=== PATIENT | male | born 1955 | race Caucasian/White ===

== ENCOUNTER 2017-02-06 08:18 | Emergency (ER) | payer OTHER ==
[2017-02-06 08:44] VITALS: BP 141/88
--- NOTE | 2017-02-06 09:30 | RAD ---
Indication: Left lateral chest pain after chest injury. 3 views of the left RIBS and AP view the chest demonstrates suggestion of a fracture of the left anterior 10th rib. There may also be a nondisplaced fracture of the anterior left ninth rib. No pneumothorax is noted. No mediastinal shift is noted. Heart is of normal size and configuration. IMPRESSION: There is suggestion of a nondisplaced fracture of the anterior left ninth and 10th ribs. No pneumothorax is noted.
--- NOTE | 2017-02-06 10:57 | UC ---
Lynn Combs Alok, scribed for Ryan Vallecillo MD on 02/06/17 at 0849 . Minor Trauma HPI - HPI Summary HPI Summary: 61M presents to [facility] with left sided rib pain radiating to the back since a slip and fall 3 days ago. Pt landed on his left sided and reported pain only hours after impact, worsening today. Pt states his pain is worsened by cough, bending forward, and supine position. Pt has been taking Tylenol and using Arctica cream to alleviate pain. Pt notes constipation for the last 3 days and states his last BM was harder than usual. Pt notes chronic productive cough with white sputum due to tobacco use. Pt denies dyspnea, rash, SOB, abd pain, or blood in stool. - History of Current Complaint Stated Complaint: POSSIBLE BROKEN RIB Time Seen by Provider: 02/06/17 08:33 Hx Obtained From: Patient Onset/Duration: Lasting Days Severity Initially: Moderate Severity Currently: Moderate Pain Intensity: 4 Pain Scale Used: 0-10 Numeric Mechanism Of Injury: Fall From A Standing Position Aggravating Factor(s): Coughing Alleviating Factor(s): OTC Meds - Tylenol - Allergies/Home Medications Allergies/Adverse Reactions: Allergies Allergy/AdvReac Type Severity Reaction Status Date / Time Buckwheat Allergy Unknown Unknown Verified 02/09/16 08:12 Reaction Details PMH/Surg Hx/FS Hx/Imm Hx - Surgical History Surgical History: Yes Surgery Procedure, Year, and Place: vasectomy, bilateral cataract removal - Family History Known Family History: Negative: Cardiac Disease, Hypertension, Diabetes Family History: FHx of melanoma - mother; FHx of prostate CA - father - Social History Occupation: Employed Full-time Lives: With Family Alcohol Use: Occasionally Substance Use Type: None Smoking Status (MU): Heavy Every Day Tobacco Smoker Type: Cigarettes Amount Used/How Often: 1 PACK PER WEEK Have You Smoked in the Last Year: Yes When Did the Patient Quit Smoking/Using Tobacco: STARTED SMOKING IN HIGH SCHOOL Household Exposure Type: Cigarettes Review of Systems Respiratory: Cough Gastrointestinal: Other - constipation Musculoskeletal: Other: - left sided rib pain, back pain All Other Systems Reviewed And Are Negative: Yes Physical Exam Triage Information Reviewed: Yes Appearance: Well-Appearing, No Pain Distress Vital Signs: Initial Vital Signs Temp 99 F 02/06/17 08:29 Pulse 78 02/06/17 08:29 Resp 18 06/13/17 08:29 BP 141/88 02/06/17 08:29 Pulse Ox 97 02/06/17 08:29 Vital Signs Reviewed: Yes Eyes: Positive: Other: - EOMI, CHARBEL ENT Exam: Normal Neck: Positive: Supple, Nontender Respiratory: Positive: Lungs clear, No respiratory distress Cardiovascular: Positive: RRR Abdomen Description: Positive: Nontender, Soft Bowel Sounds: Positive: Present Musculoskeletal: Positive: Other: - Tender left lateral lower ribs to palpation with good air movement bilaterally. Neurological Exam: Normal Neurological: Positive: Other: - alert & oriented x3. Sensory/Motor intact Psychological: Positive: Other: - affect/mood appropriate Skin: Positive: Other - warm, dry, color reflects adequate perfusion Diagnostics - Radiology Ribs w/CXR Xray Interpretation: Positive (See Comments) - IMPRESSION: There is suggestion of a nondisplaced fracture of the anterior left ninth and 10th ribs. No pneumothorax is noted. Radiology Interpretation Completed By: Radiologist Minor Trauma Course/Dx - Course Course Of Treatment: Pt medications reviewed this visit. PATIENT NON TENDER IN ABDOMEN. DISCUSSED TREATMENT OF RIBS FXRS. HE WILL USE OTC CONSTIPATION CARE. F/U WITH PMD; WILL GET RECHECKED IF WORSE. - Differential Dx/Diagnosis Provider Diagnoses: LEFT 9TH AND 10TH RIB FRACTURES. CONSTIPATION. Discharge - Discharge Plan Condition: Stable Disposition: HOME Patient Education Materials: How to Use an Incentive Spirometer (ED), Constipation (ED), Rib Fracture (ED) Referrals: Stephenie Toro MD [Primary Care Provider] - Additional Instructions: FOLLOW UP WITH YOUR DOCTOR. GO TO THE EMERGENCY DEPARTMENT FOR ANY WORSENING OF YOUR CONDITION OR QUESTIONS OR CONCERNS. The documentation as recorded by the Lynn rodgers Alok accurately reflects the service I personally performed and the decisions made by me, Ryan Vallecillo MD.
== END 2017-02-06 10:19 | disposition home or self-care (01) ==
LOC: UCEAST 08:18
DX: S22.42XA Multiple fractures of ribs, left side, initial encounter for closed fracture (principal); K59.00 Constipation, unspecified; F17.210 Nicotine dependence, cigarettes, uncomplicated; W01.0XXA Fall on same level from slipping, tripping and stumbling without subsequent striking against object, initial encounter; Y92.9 Unspecified place or not applicable
CPT/HCPCS: 99201; G0463

== ENCOUNTER 2017-12-30 09:29 | Emergency (ER) | payer OTHER ==
--- NOTE | 2017-12-30 11:12 | RAD ---
INDICATION: Fall 2 weeks ago, headache since. COMPARISON: There are no prior studies available for comparison. TECHNIQUE: Contiguous axial sections of the brain were obtained from the skull base to the vertex without contrast. FINDINGS: The ventricles, cisterns and sulci are within normal limits. No significant focal abnormality or mass effect is seen. There is no evidence for hemorrhage. No fracture is seen. There is mild mucosal thickening within the ethmoid, sphenoid and frontal sinuses. The visualized portion of the axillary sinuses appear clear. The mastoid air cells appear clear. IMPRESSION: 1. NO EVIDENCE FOR ACUTE INTRACRANIAL ABNORMALITY. 2. FINDINGS SUGGESTIVE OF MILD CHRONIC SINUSITIS.
--- NOTE | 2017-12-30 11:15 | RAD ---
INDICATION: Right hip injury. COMPARISON: There are no prior studies available for comparison. TECHNIQUE: An AP view of the pelvis and frontal and lateral views of the right hip were obtained. FINDINGS: There is a bony configuration predisposing to CAM type femoral acetabular impingement. The bones are otherwise in normal alignment. No fracture is seen There is mild bilateral osteoarthritic change in the hips. IMPRESSION: NO EVIDENCE FOR FRACTURE, IF THE PATIENT'S SYMPTOMS PERSIST RECOMMEND FOLLOW-UP IMAGING.
[2017-12-30] MEDS ORDERED: Ibuprofen TAB* 600 MG PO ONE (11:35)
--- NOTE | 2017-12-30 11:51 | RAD ---
INDICATION: Right testicular pain. COMPARISON: There are no prior studies available for comparison. TECHNIQUE: Multiple real-time images of the testicles were obtained including color Doppler images and Doppler tracings. FINDINGS: The testicles are normal in size, shape and echogenicity. The right testicle measured 4.3 x 2.2 x 3.0 cm and the left testicle measured 3.6 x 2.1 x 4.2 cm. No intratesticular mass is seen. There is symmetric vascular flow within both testicles. There are prominent bilateral extratesticular cysts likely representing epididymal cysts measuring 1.0 x 1.3 x 1.1 cm on the right side and 9.7 x 5.9 x 5.0 cm on the left side. No hydrocele is seen. IMPRESSION: 1. NO EVIDENCE FOR ACUTE FINDING. 2. BILATERAL EXTRATESTICULAR CYSTS MOST CONSISTENT WITH A EPIDIDYMAL CYSTS, LARGE ON THE LEFT SIDE.
--- NOTE | 2017-12-30 12:05 | RAD ---
INDICATION: Right groin pain after trauma. COMPARISON: Correlation is made with a prior CT urogram from April 17, 2013 and a prior x-ray study of the right hip from December 30, 2017. TECHNIQUE: Contiguous axial sections were obtained through the pelvis without intravenous or oral contrast. Images were reconstructed in the coronal and sagittal planes. FINDINGS: The bones are normal alignment. No acute fracture is seen. There is bilateral spondylolysis at the L5 level. The vertebra are in normal alignment. 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 There is mild to moderate bilateral osteoarthritic change in the hips. There is a cystic lesion within the medial right iliac bone with a sclerotic margin measuring 1 cm in size which is unchanged from the prior CT urogram and consistent with a benign process. There are bilateral vasectomy clips present. Again note is made of a large left scrotal cyst. The visualized portion of the small bowel and colon appear nondistended. No hernia is seen. There is moderate sigmoid diverticulosis without evidence for diverticulitis. No significant enlarged pelvic or inguinal lymph nodes are seen. No free intraperitoneal air or fluid is seen. IMPRESSION: 1. NO EVIDENCE FOR FRACTURE OR HERNIA. 2. BILATERAL SPONDYLOLYSIS AT THE L5 LEVEL.
[2017-12-30 13:30] VITALS: BP 126/73
--- NOTE | 2017-12-30 13:39 | ED ---
Complex/Multi-Sys Presentation - HPI Summary HPI Summary: patient here with right groin pain times the past week. He's noticed a progressive worsening of pain here which she describes as intermittent stiffness and aching. This seems to be worse after he's been sitting for period of time and stands up - it gets better once he is up and moving around a bit. He's here today as he reports the pain started radiating into his right testicular area. Denies any numbness tingling or weakness in his leg and no change in bowel or bladder habits. He is urinating well although he does admit to a large yet stable left testicular cyst and chronic microhematuria without known cause. He is followed by Dr. Collins for these conditions. He denies any change in testicular swelling as well as flank pain, dysuria, urinary frequency , urinary urgency. He is moving his bowels well without difficulty. After describing the symptoms and learning more of his back Souri, he reports he fell in the bathtub 2 weeks ago. He had soap on his feet that wasn't completely rinsed off when he slipped and fell. He does not believe he struck his head but he is not sure - denies loss of consciousness. He has had some headaches since then however denies change in vision, nausea, new neck pain/stiffness, memory issues. His further reports he fell again yesterday as he tripped over an object on the floor. Although this was a mechanical fall, both he and his feel he should have been able to maneuver this better. reports patient's mood/personality/demeanor has been changing over the past year and that his friends and family notice it as well. His PCP has ordered brain imaging for January 10 in an effort to better identify a possible pathology linked to his symptoms. Patient denies history of head injuries but he is exposed to chemicals at his job. notes patient did have a very low vitamin D level (8 ) recently and has been taking supplements since. 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 - - Allergies/Home Medications Allergies/Adverse Reactions: Allergies Allergy/AdvReac Type Severity Reaction Status Date / Time buckwheat Allergy Anaphylatic Verified 12/30/17 09:43 Shock Home Medications: Home Medications Cholecalciferol TAB* [Vitamin D TAB*] 1,000 units PO DAILY 12/30/17 [History Confirmed 12/30/17] PMH/Surg Hx/FS Hx/Imm Hx Previously Healthy: Yes Endocrine/Hematology History: Reports: Hx Thyroid Disease - HYPOTHYROID Denies: Hx Anticoagulant Therapy, Hx Blood Disorders, Hx Diabetes Cardiovascular History: Reports: Hx Hypercholesterolemia Denies: Hx Aneurysm, Hx Hypertension, Hx Myocardial Infarction, Hx Pacemaker/ ICD Respiratory History: Denies: Hx Asthma, Hx Chronic Obstructive Pulmonary Disease (COPD), Hx Sleep Apnea GI History: Denies: Hx Gastroesophageal Reflux Disease, Hx Irritable Bowel History: Denies: Hx Kidney Stones Musculoskeletal History: Reports: Other Musculoskeletal History - chronic neck issues Sensory History: Reports: Hx Cataracts, Hx Contacts or Glasses - GLASSES Denies: Hx Hearing Aid Opthamlomology History: Reports: Hx Cataracts, Hx Contacts or Glasses - GLASSES Neurological History: Denies: Hx CVA, Hx Headaches, Hx Migraine, Hx Nerve Disease, Hx Peripheral Neuropathy, Hx Seizures, Hx Spinal Cord Injury Psychiatric History: Denies: Hx Anxiety, Hx Depression - Surgical History Surgery Procedure, Year, and Place: vasectomy, bilateral cataract removal Hx Anesthesia Reactions: No Infectious Disease History: No Infectious Disease History: Denies: Hx Clostridium Difficile, Hx Hepatitis, Hx Human Immunodeficiency Virus (HIV), Hx of Known/Suspected MRSA, Hx Shingles, Hx Tuberculosis, Hx Known/ Suspected VRE, Hx Known/Suspected VRSA, History Other Infectious Disease, Traveled Outside the [place] in Last 30 Days - Family History Known Family History: Negative: Cardiac Disease, Hypertension, Diabetes Family History: FHx of melanoma - mother; FHx of prostate CA - father - Social History Alcohol Use: Occasionally Substance Use Type: Reports: None Smoking Status (MU): Heavy Every Day Tobacco Smoker Type: Cigarettes Amount Used/How Often: 1 PACK PER WEEK Have You Smoked in the Last Year: Yes Review of Systems Constitutional: Negative Negative: Fever, Chills, Fatigue Positive: Photophobia - chronic. Negative: Blurred Vision, Diplopia, Drainage, Erythema ENT: Negative Cardiovascular: Negative Respiratory: Negative Gastrointestinal: Negative Positive: see HPI Positive: Arthralgia, Myalgia. Negative: Decreased ROM, Edema Skin: Negative Positive: Headache. Negative: Weakness, Paresthesia, Numbness, Syncope, Slurred Speech Psychological: Other - mood changes in history of present illness All Other Systems Reviewed And Are Negative: Yes Physical Exam Triage Information Reviewed: Yes Vital Signs On Initial Exam: Initial Vitals Temp Pulse Resp BP Pulse Ox 97.2 F 87 16 151/93 97 12/30/17 09:32 12/30/17 09:32 12/30/17 09:32 12/30/17 09:32 12/30/17 09:32 Vital Signs Reviewed: Yes Appearance: Positive: Well-Appearing, No Pain Distress, Well-Nourished Skin: Positive: Warm, Skin Color Reflects Adequate Perfusion, Dry - No erythema , no ecchymosis over affected area of right hip groin inner thigh area Head/Face: Positive: Normal Head/Face Inspection - Nontender palpation and no gross deformity, no step-off, no cooper sign, no raccoon eyes Eyes: Positive: Normal, EOMI, CHARBEL - No acute photophobia, Conjunctiva Clear ENT: Positive: Normal ENT inspection, Hearing grossly normal, Pharynx normal, TMs normal - No hemotympanum Dental: Negative: Dental Fracture @ Neck: Positive: Supple, Nontender Respiratory/Lung Sounds: Positive: Clear to Auscultation, Breath Sounds Present Cardiovascular: Positive: Normal, RRR, Pulses are Symmetrical in both Upper and Lower Extremities. Negative: Leg Edema Left, Leg Edema Right Abdomen Description: Positive: Nontender, No Organomegaly, Soft. Negative: CVA Tenderness (R), CVA Tenderness (L), Distended, Guarding, Hernia @, Pulsatile Mass Bowel Sounds: Positive: Present Male Genital Exam: Positive: Scrotum Tenderness (L) - Significant edema with additional weight, Testicular Tenderness (R) - Smooth without palpable masses - has posterior mild tenderness of vascular/epididymal structures, Testicular Tenderness (L) - Smooth without palpable masses. Negative: No Hernia, Erythema , High Riding Prostate, Inguinal Tenderness, Lesions, Urethral Discharge, Other - No lymphadenopathy in the inguinal region bilaterally Musculoskeletal: Positive: Strength/ROM Intact - Patient denies pain with single leg standing on affected leg as well as full range of motion standing using affected leg; negative impingement test. Negative: Pain @ - Entire hip structure greater trochanter and proximal femur are nontender to palpation Neurological: Positive: Sensory/Motor Intact, Alert, Oriented to Person Place, Time, CN Intact II-III, Finger to Nose - as below, Facial Symmetry, Other - I don't have a baseline evaluation for this patient but he seems to be responding more slowly/deliberately based on his baseline per ; minimal but noticable coordiation issues with finger to nose testing Psychiatric: Positive: Other - Pleasant, calm, defers to to answer some questions which she reports is out of character for him Diagnostics - Vital Signs Vital Signs Temp Pulse Resp BP Pulse Ox 12/30/17 13:18 69 126/73 97 12/30/17 13:00 73 96 12/30/17 12:48 79 108/75 96 12/30/17 12:18 64 130/83 97 12/30/17 12:00 65 97 12/30/17 11:00 65 98 12/30/17 10:48 69 138/88 98 12/30/17 10:18 73 134/88 96 12/30/17 10:05 78 97 12/30/17 09:51 81 149/96 97 12/30/17 09:48 81 149/93 97 12/30/17 09:32 97.2 F 87 16 151/93 97 - Laboratory Lab Statement: Any lab studies that have been ordered have been reviewed, and results considered in the medical decision making process. Complex Multi-Symp Course/Dx Course Of Treatment: X-ray right hip and pelvis reveals CAM impingement. Further evaluated with CT given patient's symptoms which further confirms condition without additional pathology such as fracture, dislocation, lesion, etc. Patient was provided with ibuprofen and advised conservative care as well as close follow-up with PCP in the event that he needs an orthopedic referral. He's been ambulating with symptoms without difficulty so do not feel that nonweightbearing precautions are needed at this time. Furthermore given the fact that he has had headaches since his falls, a brain CT was ordered to assess for intracranial hemorrhage or swelling. He is neurologically intact today other than slower/deliberate responses which seem out of character. His CT is negative for acute findings however conversation with to follow-up with PCP for further imaging based on her concerns over his changes in the past year. She agrees to contact PCP to discuss evaluation today and voice her concerns about evaluation moving forward. D/t pain in hip and coordination issues, will remove from work until cleared to return by PCP. Reviewed danger signs and symptoms with patient and are when to return the emergency Department. They agree with plan. - Diagnoses Provider Diagnoses: Femoroacetabular impingement of right hip, Fall, Decreased coordination Discharge - Sign-Out/Discharge Documenting (check all that apply): Discharge/Admit/Transfer - Discharge Plan Condition: Stable Disposition: HOME Patient Education Materials: Fall Prevention (ED), Hip Pain (ED) Forms: *Work Release Referrals: Stephenie Toro MD [Primary Care Provider] - Additional Instructions: You are here today with right groin pain after falling 2 weeks ago. Your symptoms and imaging here today correlate with a condition called Femoral acetabular impingement. The treatment at this time will be Aleve 500 mg every 12 hours with food as needed for pain. You may also try heat or ice to the area. It is encouraged that you don't stay in one position for too long as this seems to create stiffness for you. It is also important that you follow up with her primary care physician for further investigation of this condition in the event that it does not improve with recommendations made here today. Call tomorrow to schedule an appointment this week for follow-up as you may need further referral to an center medical specialist. *If in the meantime you develop leg numbness, tingling, or weakness, return to the ED. In addition to your groin pain, you also commented that you've been having headaches since your fall. A brain CT was performed today and does not indicate any bleeding within the skull. Your however has indicated a progression of change in personality as well as reduced energy, symptoms of being more withdrawn and difficulty with coordination, all of which are unlike your baseline. This has been discussed with your PCP who ordered imaging on January 10. Contact your PCP tomorrow to let them know that you had a brain CT without contrast here today that is showing no acute findings as you may benefit from more detailed imaging through your PCP's office such as an MRI. You may also benefit from a neurology consult given your symptoms which your and others that know you well report have been progressively worsening over the past year. Your PCP can arrange this referral for you based on your scan findings as well as any additional testing he may perform in his office ( ie. dementia screening, etc). *If you develop severe headache, change in vision, vomiting, numbness, tingling , weakness, facial drooping, slurred speech, syncope or seizure, return to the ED - Billing Disposition and Condition Condition: STABLE Disposition: HOME
== END 2017-12-30 13:53 | disposition home or self-care (01) ==
LOC: ED 09:29
DX: M25.851 Other specified joint disorders, right hip (principal); R10.31 Right lower quadrant pain; F17.210 Nicotine dependence, cigarettes, uncomplicated; R51 Headache; H53.149 Visual discomfort, unspecified
CPT/HCPCS: 70450; 72192; 76870; 99283; A9270-GY

== ENCOUNTER 2019-01-26 00:55 | Inpatient (IN) | payer MEDICARE, OTHER ==
--- NOTE | 2019-01-26 02:03 | ED ---
Psychiatric Complaint - HPI Summary HPI Summary: This patient is a 63 year old M brought to ED via with a chief complaint of suicide attempt at 0010 this morning. Patient was found by police in his vehicle attempting suicide by asphyxiation from truck exhaust fed into his house. He was in the car for about 30 minutes. Patient was found by his . 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 Patient reports having long guns in his house. The patient rates the pain 2/10 in severity. Symptoms aggravated by nothing. Symptoms alleviated by nothing. Patient denies previous SI or suicide attempt, fever. - History Of Current Complaint Chief Complaint: EDSuicidal Time Seen by Provider: 01/26/19 01:47 Hx Obtained From: Patient, EMS Onset/Duration: Lasting Hours - SI attempt at 0100 this morning Aggravating Factor(s): Nothing Alleviating Factor(s): Nothing Associated Signs And Symptoms: Positive: Negative Has Suicidal: Reports: Has Prior Attempt(s) Recent Stressor(s): Dx with PSP - Allergies/Home Medications Allergies/Adverse Reactions: Allergies Allergy/AdvReac Type Severity Reaction Status Date / Time buckwheat Allergy Anaphylatic Verified 01/26/19 04:08 Shock PMH/Surg Hx/FS Hx/Imm Hx Endocrine/Hematology History: Reports: Hx Thyroid Disease - HYPOTHYROID Denies: Hx Anticoagulant Therapy, Hx Blood Disorders, Hx Diabetes Cardiovascular History: Reports: Hx Hypercholesterolemia Denies: Hx Aneurysm, Hx Hypertension, Hx Myocardial Infarction, Hx Pacemaker/ ICD Respiratory History: Denies: Hx Asthma, Hx Chronic Obstructive Pulmonary Disease (COPD), Hx Sleep Apnea GI History: Denies: Hx Gastroesophageal Reflux Disease, Hx Irritable Bowel History: Denies: Hx Kidney Stones, Hx Renal Disease Musculoskeletal History: Reports: Other Musculoskeletal History - chronic neck issues Sensory History: Reports: Hx Cataracts, Hx Contacts or Glasses - GLASSES Denies: Hx Hearing Aid Opthamlomology History: Reports: Hx Cataracts, Hx Contacts or Glasses - GLASSES Neurological History: Denies: Hx CVA, Hx Headaches, Hx Migraine, Hx Nerve Disease, Hx Peripheral Neuropathy, Hx Seizures, Hx Spinal Cord Injury Psychiatric History: Denies: Hx Anxiety, Hx Depression, Hx Panic Disorder - Surgical History Surgery Procedure, Year, and Place: vasectomy, bilateral cataract removal Hx Anesthesia Reactions: No Infectious Disease History: No Infectious Disease History: Denies: Hx Clostridium Difficile, Hx Hepatitis, Hx Human Immunodeficiency Virus (HIV), Hx of Known/Suspected MRSA, Hx Shingles, Hx Tuberculosis, Hx Known/ Suspected VRE, Hx Known/Suspected VRSA, History Other Infectious Disease, Traveled Outside the [place] in Last 30 Days - Family History Known Family History: Negative: Cardiac Disease, Hypertension, Diabetes Family History: FHx of melanoma - mother; FHx of prostate CA - father - Social History Alcohol Use: Occasionally Hx Substance Use: No Substance Use Type: Reports: None Hx Tobacco Use: No Smoking Status (MU): Heavy Every Day Tobacco Smoker Type: Cigarettes Amount Used/How Often: 1 PACK PER WEEK Have You Smoked in the Last Year: Yes Review of Systems Negative: Fever Psychological: Other - Suicide attempt All Other Systems Reviewed And Are Negative: Yes Physical Exam - Summary Physical Exam Summary: Appearance:Well-appearing, Well-nourished, lying in bed comfortable Skin:Warm, dry, no obvious rash Eyes:sclera anicteric, no conjunctival pallor ENT:mucous membranes moist Neck:deferred Respiratory:No signs of respiratory distress Cardiovascular:Appears well perfused, pulses are nml Abdomen:deferred Musculoskeletal:Moving all 4 extremities without obvious discomfort Neurological:Awakeand alert, mentation is normal, speech is fluent and appropriate Psychiatric:flat affect, does not appear anxious or depressed Triage Information Reviewed: Yes Vital Signs On Initial Exam: Initial Vitals Temp Pulse Resp BP Pulse Ox 98.5 F 95 16 135/82 96 01/26/19 01:14 01/26/19 01:14 01/26/19 01:14 01/26/19 01:14 01/26/19 01:14 Vital Signs Reviewed: Yes Diagnostics - Vital Signs Vital Signs Temp Pulse Resp BP Pulse Ox 01/26/19 01:14 98.5 F 95 16 135/82 96 - Laboratory Result Diagrams: 01/26/19 03:10 01/26/19 03:10 Lab Statement: Any lab studies that have been ordered have been reviewed, and results considered in the medical decision making process. Course/Dx - Course Course Of Treatment: This patient is a 63 year old M brought to ED via with a chief complaint of suicide attempt at 0010 this morning. Blood work obtained. Patient is medically cleared for MHU at 0409. The patient will be admitted to [facility] by Dr. Myers for depressive disorder and suicide attempt. - Differential Dx/Clinical Impression Provider Diagnosis: Depressive disorder Discharge - Sign-Out/Discharge Documenting (check all that apply): Patient Departure - Admit Patient Received Moderate/Deep Sedation with Procedure: No - Discharge Plan Condition: Fair Disposition: PSYCHIATRIC FACILITY-[facility] - Billing Disposition and Condition Condition: FAIR Disposition: Psychiatric Facility [facility] - Attestation Statements Document Initiated by Scribe: Yes Documenting Scribe: Phong Kerns Provider For Whom Scribe is Documenting (Include Credential): Roberto Carlos Vega MD Scribe Attestation: Phong Combs, scribed for Roberto Carlos Vega MD on 01/27/19 at 0312. Scribe Documentation Reviewed: Yes Provider Attestation: The documentation as recorded by the Phong rodgers accurately reflects the service I personally performed and the decisions made by me, Roberto Carlos Vega MD Status of Scribe Document: Viewed
[2019-01-26 03:20] LABS: ABS Basophils 0.1 10^3/ul (0-0.2); ABS Eosinophils 0.3 10^3/ul (0-0.6); ABS Lymphocytes 2.5 10^3/ul (1.0-4.8); ABS Monocytes 1.1 10^3/ul (0-0.8); ABS Neutrophils 6.5 10^3/ul (1.5-7.7); Eosinophil % 2.7 %; Hematocrit 47 % (42-52); Hemoglobin 15.5 g/dL (14.0-18.0); Lymphocyte % 23.8 %; Mean Corpuscular HGB Conc 33 g/dL (31-36); Mean Corpuscular Hemoglobin 29 pg (27-31); Mean Corpuscular Volume 89 fL (80-94); Mean Platelet Volume 7.9 fL (7.4-10.4); Nucleated Red Blood Cells % 0.1; Platelet Count 200 10^3/uL (150-450); Red Blood Count 5.32 10^6 /uL (4.18-5.48); Red Cell Distribution Width 15 % (10.5-15); White Blood Count 10.5 10^3/uL (3.5-10.8)
[2019-01-26 03:34] LABS: ALT 17 U/L (7-52); Albumin 3.8 g/dL (3.2-5.2); Albumin/Globulin Ratio 1.3 (1-3); Alkaline Phosphatase 87 U/L (34-104); BUN/Creatinine Ratio 18.1 (8-20); Blood Urea Nitrogen 15 mg/dL (6-24); CO2 Carbon Dioxide 23 mmol/L (22-32); Calcium 9.1 mg/dL (8.6-10.3); Chloride 107 mmol/L (101-111); EGFR African American 112.5 (>60); Globulin 2.9 g/dL (2-4); Glucose 102 mg/dL (70-100); Sodium 139 mmol/L (135-145); Total Protein 6.7 g/dL (6.4-8.9)
[2019-01-26 03:54] LABS: AST 20 U/L (13-39); Anion Gap 9 mmol/L (2-11)
[2019-01-26 03:55] LABS: Acetaminophen < 15 mcg/mL; Alcohol < 10 mg/dL (<10); Salicylate < 2.50 mg/dL (<30)
[2019-01-26 04:11] LABS: TSH (Thyroid Stimulating Horm) 1.62 mcIU/mL (0.34-5.60)
--- NOTE | 2019-01-26 07:26 | ED ---
Progress - Progress Note Progress Note: This patient is signed out from Dr. Vega at 0700 awaiting disposition per mental health staff. - Consult/PCP Time Called: 04:40 Course/Dx - Course Course Of Treatment: This patient is a 63 year old M brought in after a suicide attempt at 0100. This patient was signed out from Dr. Vega at 0700. At 0720 mental health chair post machine operator informed me that this patient will be admitted with a diagnosis of unspecified depressive disorder per Dr. Sanchez. - Diagnoses Provider Diagnoses: Depressive disorder Discharge - Sign-Out/Discharge Documenting (check all that apply): Patient Departure - admit - Discharge Plan Condition: Fair Disposition: PSYCHIATRIC FACILITY-[facility] - Attestation Statements Document Initiated by Scribe: Yes Documenting Scribe: Blossom Martin Provider For Whom Scribe is Documenting (Include Credential): Rome Guzmán MD Scribe Attestation: Blossom Combs, scribed for Rome Guzmán MD on 01/26/19 at 2374. Status of Scribe Document: Ready
[2019-01-26] MEDS ORDERED: Al Hydrox/Mg Hydrox/Simet LIQ* 30 ML UDC PO PRN (09:53)
[2019-01-26] MEDS ORDERED: Acetaminophen TAB* 325 MG PO PRN (09:53)
[2019-01-26] MEDS ORDERED: Cholecalciferol TAB* 1000 UNITS PO SCH (10:00)
[2019-01-26] MEDS ORDERED: Atorvastatin* 20 MG TAB PO SCH (10:00)
[2019-01-26] MEDS: Levothyroxine TAB* 112 MCG TAB PO SCH (10:30)
[2019-01-26] MEDS: Sertraline* 25 MG TAB PO SCH (10:30)
[2019-01-26] MEDS: Vitamin THERAPEUTIC TAB PO SCH (10:31)
[2019-01-26] MEDS ORDERED: Nicotine Patch Removal NOTE PATCH OFF PRN (15:19)
[2019-01-26] MEDS: Nicotine* 2MG (FRUIT FLAVOR) GUM PO PRN ×2 (16:33→20:03)
--- NOTE | 2019-01-26 18:28 | HP ---
HISTORY AND PHYSICAL: DATE OF ADMISSION: 01/26/19 IDENTIFYING DATA: Mr. Maynard is a 63-year-old, physically disabled male with no prior history of psychiatric hospitalization or treatments, who was brought into the emergency room by police and ambulance after a failed suicide attempt. CHIEF COMPLAINT: "I seriously tried to take myself out." HISTORY OF PRESENT ILLNESS: Mr. 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 The patient reports that he has been going through some relationship problems with his who is sidetracking him from the job as well as her life. He reports that he did not have any sexual encounter with his for more than 2 years because of her complaints of her own problems and he is not happy and he has suspicion that she might be trying to sidetrack and get rid of him eventually. This gives him the idea that he should end his life to relieve others. While talking about mental health issues , he denies any typical signs or symptoms of major depression, hypomania, or rahel. He denies any psychotic symptoms. He reports that his neurologist prescribed him some antidepressants, but I cannot find it whatever he was prescribed. PAST PSYCHIATRIC HISTORY: Unremarkable as he was never seen by a psychiatrist or received any treatment. PAST MEDICAL HISTORY: Remarkable for a diagnosis of non-Parkinson's progressive supranuclear palsy for which he sees double and has difficulty ambulating. Reportedly, he fell a few days ago because of unsteadiness. Otherwise, he denies any acute or chronic physical health issues. He sees Dr. Oneill and sometimes goes to [place] to see superspecialist for his neurological conditions. ALLERGIES: No known drug allergies. FAMILY PSYCHIATRIC HISTORY: Unremarkable. PERSONAL AND SOCIAL HISTORY: Mr. Maynard is currently disabled. He has little more than high school education. 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 He then joined his 's business, but now that has become an issue for him. PHYSICAL EXAMINATION GENERAL: Mr. Maynard is a healthy-appearing 63-year-old male, who is appropriately dressed and fairly groomed with fair personal hygiene. VITAL SIGNS: His vitals show a blood pressure of 135/82, pulse 95, respirations 16, temperature 98.5, and pulse ox 96% on room air. HEENT: His eyes show anicteric sclerae. Conjunctivae within normal limits. Ears: Clean eardrums and ear canals. Eardrums intact bilaterally. There is some difficulty hearing through his left ear he reports, but no formal exam was done. NECK: Little stiff, but movable. Midline trachea. No adenopathy or thyromegaly. LUNGS: Equal air entry bilaterally. No respiratory wheezes or crackles. CARDIOVASCULAR: S1 and S2 only. No gallops, murmurs, or rubs appreciated. Rate and rhythm are within normal limits. ABDOMEN: Soft, nontender. No evidence of enlarged organs. Bowel sounds positive in all quadrants. MUSCULOSKELETAL: Little stiff, maybe because of apprehension, but there are pulses positive in all extremities. NEUROLOGICAL: Alert, awake, and oriented to time, place, and person. Does not blink much. Otherwise, no sensory deficits. Cranial nerves II through XII grossly intact. LABORATORY DATA: Labs show a WBC count of 10.5, hemoglobin 15.5, hematocrit 47 , platelet count 200. Chem profile shows a sodium level of 139, potassium 4, chloride 107, carbon dioxide 23, BUN 15, creatinine 0.82. MENTAL STATUS EXAMINATION: The patient appears to be of his stated age 63, who is appropriately dressed, fairly groomed with fair personal hygiene. He has some gait difficulties, walks with a cane. Makes good eye contact, but does not have much of blinking. Looks like he is staring intensely, but that probably could be because of his neurological conditions. His speech is normal in all spheres. Intelligence appears to be average as evidenced by his vocabulary and fund of knowledge. Thought processes are logical and goal directed. Thought content has no evidence of delusions or obsessions. Currently denies any suicidal ideation, but was admitted because of attempting to asphyxiate. Denies any homicidal ideations. Memory functions appear to be intact in all spheres. Insight and judgment poor. SUMMARY: This 63-year-old disabled male with no prior history of psychiatric illnesses or treatments was admitted in the context of a failed suicide attempt by trying to asphyxiate self with carbon monoxide. DIAGNOSTIC IMPRESSION: Mental health diagnosis: Unspecified mood disorder, rule out adjustment disorder, rule out major depressive disorder. Physical health diagnosis: Non-Parkinson's progressive supranuclear palsy. TREATMENT RECOMMENDATIONS: For now, Mr. Maynard will be hospitalized on behavioral science unit for his safety and diagnostic clarification. His code status will remain full. Supportive milieu, individual, and group therapy will be initiated and he will be encouraged to attend those. I will continue all his outpatient medications at this time and defer the psychopharmacological treatment if needed to his assigned psychiatrist on the unit. [id number]/CPS #: [id number] EDE
[2019-01-26] MEDS: Cholecalciferol TAB* 1000 UNITS PO SCH (20:00)
[2019-01-26] MEDS: Atorvastatin* 20 MG TAB PO SCH (20:01)
[2019-01-26] MEDS: clonazePAM TAB(*) 1 MG PO SCH (20:01)
[2019-01-27] MEDS: Nicotine PATCH 21 MG/24 HR* PATCH TRANSDERM PRN (07:53)
[2019-01-27] MEDS: Levothyroxine TAB* 112 MCG TAB PO SCH (07:53)
[2019-01-27] MEDS: Sertraline* 25 MG TAB PO SCH (07:53)
[2019-01-27] MEDS: Vitamin THERAPEUTIC TAB PO SCH (08:27)
--- NOTE | 2019-01-27 09:54 | PN ---
Subjective - Subjective Date of Service: 01/27/19 Service Type: 31424 Hosp care 35 min high complexity Subjective: Nursing Report: Patient was visible on unit, no chemical restraints or PRNs. Slept overnight without incident. Attending group activities. CC: "I want to Patient was seen and evaluated today in the common room. The patient reported feeling fed up with his . He reported not having sex for 2 years and although he doesnt think his is having an affair. He reported that he is considering a divorce because he doesnt think his considers him anymore. He reports extremely low energy. The patient reports attending and participating in day groups. Per nursing no behavioral issues or overnight events reported. Patient reported that he is tolerating medications without side effects. Objective - General Observations Appearance: Neat Appears Stated Age: Yes Stature: WNL Posture: Slumped Eye Contact: Avoidant Behavior/Activity: Slowed - Interaction Observations Attitude Towards Examiner: Cooperative Stated Mood: Dysphoric Affect: Blunted, Flat Speech Pattern/Tone: Clear Thought Process: Coherent Perception: WNL Thought Content: Depressive Thought Process: Lethality: Suicidal Planning Hallucination Type: None Delusion Type: None - Cognitive Function Orientation: A&O x 4 Level of Consciousness: Awake - Medication Compliance Cooperative with Inpatient Medication Regimen: Yes - Group Participation Participates in Group Activities: Yes Assessment - Assessment Merits Inpatient Hospitalization: For Immediate Safety Clinical Impression: 63 year old male with recent aborted suicide attempt by his who found him in the garage with the exhaust directed in the window of his truck Plan - Plan Treatment Plan: Name: NISREEN HERNADEZ Birthdate: 1955 [id number] Plan #Q15 minute observation. # The patient requires inpatient admission at this time to assure safety, receive treatment and work toward stabilization. # Obtain collateral information once release is signed. plans to come for family meeting tomorrow. # Collaboration with Social Work to assist with disposition and after care. # Tobacco use disorder: nicotine supplement offered and put in place. #PT consult for gait conditioning due to PSP #Start wellbutrin 75mg daily #Increase levothyroxine to 137mcg #Goals include to eliminate/ reduce suicidal ideation Sodium 139 mmol/L (135-145) 01/26/19 03:10 Potassium 4.0 mmol/L (3.5-5.0) 01/26/19 03:10 BUN 15 mg/dL (6-24) 01/26/19 03:10 Creatinine 0.83 mg/dL (0.67-1.17) 01/26/19 03:10 Calcium 9.1 mg/dL (8.6-10.3) 01/26/19 03:10 AST 20 U/L (13-39) 01/26/19 03:10 ALT 17 U/L (7-52) 01/26/19 03:10 Vital Signs Temp Pulse Resp BP Pulse Ox 96.4 F 73 16 120/67 100 01/27/19 08:50 01/27/19 08:50 01/27/19 11:02 01/27/19 08:50 01/27/19 08:50 Continued Medication Management: Continue Outpt Medication Medications: Current Medications Acetaminophen (Tylenol Tab*) 650 mg PO Q4H PRN PRN Reason: PAIN or TEMP > 101 F Al Hydrox/Mg Hydrox/Simethicone (Maalox Plus*) 30 ml PO Q4H PRN PRN Reason: INDIGESTION Atorvastatin Calcium (Lipitor*) 20 mg PO BEDTIME [facility] Last Admin: 01/26/19 20:01 Dose: 20 mg Cholecalciferol (Vitamin D Tab*) 1,000 units PO BEDTIME [facility] Last Admin: 01/26/19 20:00 Dose: 1,000 units Clonazepam (Klonopin Tab(*)) 2.5 mg PO BEDTIME [facility] Last Admin: 01/26/19 20:01 Dose: 2.5 mg Levothyroxine Sodium (Synthroid Tab*) 112 mcg PO DAILY@0600 [facility] Last Admin: 01/27/19 07:53 Dose: 112 mcg Multivitamins (Theragran Tab*) 1 tab PO DAILY [facility] Last Admin: 01/27/19 08:27 Dose: Not Given Nicotine (Nicotine Patch 21 Mg/24 Hr*) 1 patch TRANSDERM DAILY PRN PRN Reason: CRAVINGS Last Admin: 01/27/19 07:53 Dose: 1 patch Nicotine Polacrilex (Nicotine Gum*) 2 mg PO Q2H PRN PRN Reason: CRAVINGS Last Admin: 01/26/19 20:03 Dose: 2 mg Pharmacy Profile Note (Nicotine Patch Removal Note*) 1 note PATCH OFF 2100 PRN PRN Reason: CRAVING Sertraline HCl (Zoloft*) 25 mg PO DAILY [facility] Last Admin: 01/27/19 07:53 Dose: 25 mg - Discharge Plan Discharge Plan: Inpatient Hospitalization
--- NOTE | 2019-01-27 12:58 | PN ---
BSU: Group Therapy Note - Service Type Service Type: 76040 Group Psychotherapy - Cognitive Behavioral Group Therapy ( CBT):Patient was attentive and participatory in CBT programming this morning, and remained in good behavioral control. Patient expressed positive insights regarding relevant treatment interventions and goals.
[2019-01-27] MEDS: buPROPion TAB* 75 MG PO SCH (16:20)
[2019-01-27] MEDS: clonazePAM TAB(*) 1 MG PO SCH (20:11)
[2019-01-27] MEDS: Cholecalciferol TAB* 1000 UNITS PO SCH (20:15)
[2019-01-27] MEDS: Atorvastatin* 20 MG TAB PO SCH (20:15)
[2019-01-28] MEDS ORDERED: Levothyroxine TAB* 137 MCG TAB PO SCH (06:00)
[2019-01-28] MEDS: buPROPion TAB* 75 MG PO SCH (08:28)
[2019-01-28] MEDS: Sertraline* 25 MG TAB PO SCH (08:28)
[2019-01-28] MEDS: Vitamin THERAPEUTIC TAB PO SCH (08:29)
[2019-01-28 08:53] LABS: HDL Cholesterol 41.1 mg/dL
--- NOTE | 2019-01-28 10:39 | PN ---
Subjective - Subjective Date of Service: 01/28/19 Service Type: 02475 Hosp care 35 min high complexity Subjective: Nursing Report: Patient was visible on unit, no chemical restraints or PRNs. Slept overnight without incident. Attending group activities. 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 The patient wants things to get better with his . The patient reports attending and participating in day groups. Per nursing no behavioral issues or overnight events reported. Patient reported feeling tired in the morning and thinks he is getting too much klonopin. Objective - General Observations Appearance: Neat Appears Stated Age: Yes Stature: WNL Posture: WNL, Slumped Eye Contact: Average Behavior/Activity: WNL - Interaction Observations Attitude Towards Examiner: Cooperative Stated Mood: Dysphoric Affect: Blunted Speech Pattern/Tone: Clear, Delayed Thought Process: Coherent Perception: WNL Thought Content: WNL, Self-Deprecatory Thought Process: Lethality: Passive Wish Hallucination Type: None Delusion Type: None - Cognitive Function Orientation: A&O x 4 Level of Consciousness: Awake - Medication Compliance Cooperative with Inpatient Medication Regimen: Yes - Group Participation Participates in Group Activities: Yes Assessment - Assessment Merits Inpatient Hospitalization: For Immediate Safety Clinical Impression: 63 year old male with recent aborted suicide attempt by his who found him in the garage with the exhaust directed in the window of his truck Plan - Plan Treatment Plan: Name: NISREEN HERNADEZ Birthdate: 1955 [id number] Plan #Q30 minute observation, with staff pass # The patient requires inpatient admission at this time to assure safety, receive treatment and work toward stabilization. # Obtain collateral information once release is signed. # Family meeting at 1pm # Medical bed # Start melatonin 3mg at night # D/C klonopin # Collaboration with Social Work to assist with disposition and after care. # Tobacco use disorder: nicotine supplement offered and put in place. #PT consult for gait conditioning due to PSP #Continue wellbutrin 75mg daily #Continue levothyroxine to 137mcg #Goals include to eliminate/ reduce suicidal ideation Sodium 139 mmol/L (135-145) 01/26/19 03:10 Potassium 4.0 mmol/L (3.5-5.0) 01/26/19 03:10 BUN 15 mg/dL (6-24) 01/26/19 03:10 Creatinine 0.83 mg/dL (0.67-1.17) 01/26/19 03:10 Hemoglobin A1c 5.9 % (4.0-5.6) H 01/28/19 07:42 Calcium 9.1 mg/dL (8.6-10.3) 01/26/19 03:10 AST 20 U/L (13-39) 01/26/19 03:10 ALT 17 U/L (7-52) 01/26/19 03:10 Triglycerides 78 mg/dL 01/28/19 07:42 Cholesterol 133 mg/dL 01/28/19 07:42 LDL Cholesterol 76 mg/dL 01/28/19 07:42 Vital Signs Temp Pulse Resp BP Pulse Ox 97.7 F 81 16 138/87 99 01/28/19 10:21 01/28/19 10:21 01/28/19 10:21 01/28/19 10:21 01/28/19 10:21 Continued Medication Management: Start Medication Medications: Current Medications Acetaminophen (Tylenol Tab*) 650 mg PO Q4H PRN PRN Reason: PAIN or TEMP > 101 F Al Hydrox/Mg Hydrox/Simethicone (Maalox Plus*) 30 ml PO Q4H PRN PRN Reason: INDIGESTION Atorvastatin Calcium (Lipitor*) 20 mg PO BEDTIME [facility] Last Admin: 01/27/19 20:15 Dose: 20 mg Bupropion HCl (Wellbutrin Tab*) 75 mg PO DAILY [facility] Last Admin: 01/28/19 08:28 Dose: 75 mg Cholecalciferol (Vitamin D Tab*) 1,000 units PO BEDTIME [facility] Last Admin: 01/27/19 20:15 Dose: 1,000 units Levothyroxine Sodium (Synthroid Tab*) 137 mcg PO DAILY@0600 [facility] Last Admin: 01/28/19 06:30 Dose: 137 mcg Melatonin (Melatonin) 3 mg PO BEDTIME [facility] Multivitamins (Theragran Tab*) 1 tab PO DAILY [facility] Last Admin: 01/28/19 08:29 Dose: Not Given Nicotine (Nicotine Patch 21 Mg/24 Hr*) 1 patch TRANSDERM DAILY PRN PRN Reason: CRAVINGS Last Admin: 01/27/19 07:53 Dose: 1 patch Nicotine Polacrilex (Nicotine Gum*) 2 mg PO Q2H PRN PRN Reason: CRAVINGS Last Admin: 01/26/19 20:03 Dose: 2 mg Pharmacy Profile Note (Nicotine Patch Removal Note*) 1 note PATCH OFF 2100 PRN PRN Reason: CRAVING Sertraline HCl (Zoloft*) 25 mg PO DAILY [facility] Last Admin: 01/28/19 08:28 Dose: 25 mg - Discharge Plan Discharge Plan: Inpatient Hospitalization
--- NOTE | 2019-01-28 13:06 | PN ---
BSU: Group Therapy Note - Service Type Service Type: 12136 Group Psychotherapy - Cognitive Behavioral Group Therapy ( CBT):Patient was attentive and participatory in CBT programming this morning, and remained in good behavioral control. Patient expressed positive insights regarding relevant treatment interventions and goals.
[2019-01-28] MEDS: Cholecalciferol TAB* 1000 UNITS PO SCH (19:07)
[2019-01-28] MEDS: Atorvastatin* 20 MG TAB PO SCH (19:07)
[2019-01-28] MEDS ORDERED: Amitriptyline TAB* 25 MG PO SCH (21:00)
[2019-01-28] MEDS ORDERED: Melatonin 3 MG TAB PO SCH (21:00)
[2019-01-29] MEDS: Levothyroxine TAB* 150 MCG TAB PO SCH (08:33)
[2019-01-29] MEDS: Vitamin THERAPEUTIC TAB PO SCH (08:34)
[2019-01-29] MEDS: Nicotine PATCH 21 MG/24 HR* PATCH TRANSDERM PRN (10:05)
--- NOTE | 2019-01-29 11:17 | PN ---
Subjective - Subjective Date of Service: 01/29/19 Service Type: 16117 Hosp care 35 min high complexity Subjective: Nursing Report: Patient was visible on unit, no chemical restraints or PRNs. He is attending group activities. CC: "I think you are on my wifes side Patient was seen and evaluated in the common room. The patient reported having poor sleep overnight. He reported that he feels that this chief writer is on his wifes side. He completed a task of identifying things to make things better which include letting go of anger, engaging in tasks, control anger, go to therapy. He continues to say that it makes him angry when his always has the last say and feels he needs to say something back as a rebuttal. He said at first I didnt like you because I think you only listened to my but after talking with you, things are better. He reported having adequate appetite. The patient reports attending and participating in day groups. Per nursing no behavioral issues or overnight events reported. Patient reported that he is tolerating medications without side effects. Objective - General Observations Appears Stated Age: Yes Stature: WNL Posture: WNL, Slumped Eye Contact: Avoidant Behavior/Activity: Slowed - Interaction Observations Attitude Towards Examiner: Cooperative Stated Mood: Dysphoric Affect: Blunted Speech Pattern/Tone: Perseverating Thought Process: Coherent Perception: WNL Thought Content: Preoccupation/Ruminations Hallucination Type: None Delusion Type: None - Cognitive Function Orientation: A&O x 4 Level of Consciousness: Awake Insight: Mostly Blames Others for Problems - Medication Compliance Cooperative with Inpatient Medication Regimen: Yes - Group Participation Participates in Group Activities: Yes Assessment - Assessment Clinical Impression: 63 year old male with recent aborted suicide attempt by his who found him in the garage with the exhaust directed in the window of his truck Plan - Plan Treatment Plan: Name: NISREEN HERNADEZ Birthdate: 1955 [id number] Plan #Q30 minute observation, with staff pass # The patient requires inpatient admission at this time to assure safety, receive treatment and work toward stabilization. # Obtain collateral information once release is signed. Daughter and son left contact information. # Collaboration with Social Work to assist with disposition and after care. # Tobacco use disorder: nicotine supplement offered and put in place. #PT signed off - patient refusing to use walker and prefers to use cane. # Patient denied pain, loss of function/ sensation and refusing x-ray after hitting knee during a fall. #Continue levothyroxine to 150mcg # Continue amitriptyline 25mg qhs and ambien 5mg qhs Tentative Discharge End of week/ early next week #Goals include to eliminate/ reduce suicidal ideation Sodium 139 mmol/L (135-145) 01/26/19 03:10 Potassium 4.0 mmol/L (3.5-5.0) 01/26/19 03:10 BUN 15 mg/dL (6-24) 01/26/19 03:10 Creatinine 0.83 mg/dL (0.67-1.17) 01/26/19 03:10 Hemoglobin A1c 5.9 % (4.0-5.6) H 01/28/19 07:42 Calcium 9.1 mg/dL (8.6-10.3) 01/26/19 03:10 AST 20 U/L (13-39) 01/26/19 03:10 ALT 17 U/L (7-52) 01/26/19 03:10 Triglycerides 78 mg/dL 01/28/19 07:42 Cholesterol 133 mg/dL 01/28/19 07:42 LDL Cholesterol 76 mg/dL 01/28/19 07:42 Vital Signs Temp Pulse Resp BP Pulse Ox 98.6 F 100 16 130/77 98 01/29/19 09:39 01/29/19 09:39 01/29/19 09:39 01/29/19 09:39 01/29/19 09:39 Continued Medication Management: Start Medication Medications: Current Medications Acetaminophen (Tylenol Tab*) 650 mg PO Q4H PRN PRN Reason: PAIN or TEMP > 101 F Al Hydrox/Mg Hydrox/Simethicone (Maalox Plus*) 30 ml PO Q4H PRN PRN Reason: INDIGESTION Amitriptyline HCl (Elavil Tab*) 25 mg PO 1830 [facility] Atorvastatin Calcium (Lipitor*) 20 mg PO BEDTIME [facility] Last Admin: 01/28/19 19:07 Dose: 20 mg Cholecalciferol (Vitamin D Tab*) 1,000 units PO BEDTIME [facility] Last Admin: 01/28/19 19:07 Dose: 1,000 units Levothyroxine Sodium (Synthroid Tab*) 150 mcg PO DAILY@00 [facility] Last Admin: 01/29/19 08:33 Dose: 150 mcg Multivitamins (Theragran Tab*) 1 tab PO DAILY [facility] Last Admin: 01/29/19 08:34 Dose: 1 tab Nicotine (Nicotine Patch 21 Mg/24 Hr*) 1 patch TRANSDERM DAILY PRN PRN Reason: CRAVINGS Last Admin: 01/29/19 10:05 Dose: 1 patch Nicotine Polacrilex (Nicotine Gum*) 2 mg PO Q2H PRN PRN Reason: CRAVINGS Last Admin: 01/26/19 20:03 Dose: 2 mg Pharmacy Profile Note (Nicotine Patch Removal Note*) 1 note PATCH OFF 2100 PRN PRN Reason: CRAVING Zolpidem Tartrate (Ambien Tab*) 5 mg PO BEDTIME PRN PRN Reason: INSOMNIA - Discharge Plan Discharge Plan: Inpatient Hospitalization
--- NOTE | 2019-01-29 16:30 | PN ---
BSU: Group Therapy Note - Service Type Service Type: 05866 Group Psychotherapy - Medication Education Group: Patient attended group and presented with flat affect that did not vary with discussion. Although responsive to direct prompts to respond to questions, patient did not engage in spontaneous conversation
[2019-01-29] MEDS: Amitriptyline TAB* 25 MG PO SCH (18:45)
[2019-01-29] MEDS: Atorvastatin* 20 MG TAB PO SCH (20:23)
[2019-01-29] MEDS: Cholecalciferol TAB* 1000 UNITS PO SCH (20:23)
[2019-01-29] MEDS: Zolpidem TAB* 5 MG PO PRN (20:24)
[2019-01-30] MEDS: Levothyroxine TAB* 150 MCG TAB PO SCH (08:53)
[2019-01-30] MEDS: Vitamin THERAPEUTIC TAB PO SCH (08:53)
[2019-01-30] MEDS: Nicotine PATCH 21 MG/24 HR* PATCH TRANSDERM PRN (08:55)
--- NOTE | 2019-01-30 11:35 | PN ---
Subjective - Subjective Date of Service: 01/30/19 Service Type: 01010 Hosp care 35 min high complexity Subjective: Nursing Report: Patient was visible on unit, no chemical restraints or PRNs. He is attending group activities. CC: "I got a lot out of being here Patient was seen and evaluated in the common room. The patient reported having better sleep overnight. He plans to let go of anger by visiting his mothers grave and letting go of resentment towards her. He was informed of dangers of TCA medication in overdose and is in agreement with having his manage his medications. He reported that his daughter plans to come see him today. He noted getting a lot out of the groups and has found them to be very helpful. Patient reported that he is tolerating medications without side effects. Objective - General Observations Appearance: Neat Appears Stated Age: Yes Stature: WNL Posture: Slumped Eye Contact: Average Behavior/Activity: WNL - Interaction Observations Attitude Towards Examiner: Cooperative Stated Mood: Dysphoric Affect: Blunted Speech Pattern/Tone: Clear Thought Process: Coherent Perception: WNL Thought Content: WNL Hallucination Type: None Delusion Type: None - Cognitive Function Orientation: A&O x 4 Level of Consciousness: Awake - Medication Compliance Cooperative with Inpatient Medication Regimen: Yes - Group Participation Participates in Group Activities: Yes Assessment - Assessment Clinical Impression: 63 year old male with recent aborted suicide attempt by his who found him in the garage with the exhaust directed in the window of his truck Plan - Plan Treatment Plan: Name: NISREEN HERNADEZ Birthdate: 1955 [id number] Plan #Q30 minute observation, with staff pass # The patient requires inpatient admission at this time to assure safety, receive treatment and work toward stabilization. # Obtain collateral information once release is signed. Daughter and son left contact information. # Collaboration with Social Work to assist with disposition and after care. # Tobacco use disorder: nicotine supplement offered and put in place. #Continue levothyroxine to 150mcg # Continue amitriptyline 25mg qhs and ambien 5mg qhs # informed of lethality of TCA medication and plans to manage medications to prevent overdose Tentative Discharge Sunday #Goals include to eliminate/ reduce suicidal ideation Continued Medication Management: Start Medication Medications: Current Medications Acetaminophen (Tylenol Tab*) 650 mg PO Q4H PRN PRN Reason: PAIN or TEMP > 101 F Al Hydrox/Mg Hydrox/Simethicone (Maalox Plus*) 30 ml PO Q4H PRN PRN Reason: INDIGESTION Amitriptyline HCl (Elavil Tab*) 25 mg PO 1830 [facility] Last Admin: 01/29/19 18:45 Dose: 25 mg Atorvastatin Calcium (Lipitor*) 20 mg PO BEDTIME [facility] Last Admin: 01/29/19 20:23 Dose: 20 mg Cholecalciferol (Vitamin D Tab*) 1,000 units PO BEDTIME [facility] Last Admin: 01/29/19 20:23 Dose: 1,000 units Levothyroxine Sodium (Synthroid Tab*) 150 mcg PO DAILY@0600 [facility] Last Admin: 01/30/19 08:53 Dose: 150 mcg Multivitamins (Theragran Tab*) 1 tab PO DAILY [facility] Last Admin: 01/30/19 08:53 Dose: 1 tab Nicotine (Nicotine Patch 21 Mg/24 Hr*) 1 patch TRANSDERM DAILY PRN PRN Reason: CRAVINGS Last Admin: 01/30/19 08:55 Dose: 1 patch Nicotine Polacrilex (Nicotine Gum*) 2 mg PO Q2H PRN PRN Reason: CRAVINGS Last Admin: 01/26/19 20:03 Dose: 2 mg Pharmacy Profile Note (Nicotine Patch Removal Note*) 1 note PATCH OFF 2100 PRN PRN Reason: CRAVING Zolpidem Tartrate (Ambien Tab*) 5 mg PO BEDTIME PRN PRN Reason: INSOMNIA Last Admin: 01/29/19 20:24 Dose: 5 mg - Discharge Plan Discharge Plan: Inpatient Hospitalization
[2019-01-30] MEDS: Amitriptyline TAB* 25 MG PO SCH (18:27)
[2019-01-30] MEDS: Atorvastatin* 20 MG TAB PO SCH (20:54)
[2019-01-30] MEDS: Cholecalciferol TAB* 1000 UNITS PO SCH (20:54)
[2019-01-30] MEDS: Zolpidem TAB* 5 MG PO PRN (20:54)
[2019-01-31] MEDS: Vitamin THERAPEUTIC TAB PO SCH (08:33)
[2019-01-31] MEDS: Levothyroxine TAB* 150 MCG TAB PO SCH (08:33)
[2019-01-31 10:44] VITALS: BP 127/78
--- NOTE | 2019-01-31 11:24 | DS ---
Subjective - Subjective Service Types: 90610 [facility] Day Mgmt complex over 30 min Discharge Date: 01/31/19 Subjective: CC: " I am better" Patient looks forward to seeing his family and going to therapy. He wants to live for his son and daughter and make amends with his . He reported getting a lot out of going to the CBT and DBT groups. The patient reported having adequate appetite and sleep. Per nursing no behavioral issues or overnight events reported. Patient reported tolerating medications without side effects. IDENTIFYING DATA: Mr. Maynard is a 63-year-old, physically disabled male with no prior history of psychiatric hospitalization or treatments, who was brought into the emergency room by police and ambulance after a failed suicide attempt. CHIEF COMPLAINT: "I seriously tried to take myself out." HISTORY OF PRESENT ILLNESS: Mr. 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 The patient reports that he has been going through some relationship problems with his who is sidetracking him from the job as well as her life. He reports that he did not have any sexual encounter with his for more than 2 years because of her complaints of her own problems and he is not happy and he has suspicion that she might be trying to sidetrack and get rid of him eventually. This gives him the idea that he should end his life to relieve others. While talking about mental health issues, he denies any typical signs or symptoms of major depression, hypomania, or rahel. He denies any psychotic symptoms. He reports that his neurologist prescribed him some antidepressants, but I cannot find it whatever he was prescribed. PAST PSYCHIATRIC HISTORY: Unremarkable as he was never seen by a psychiatrist or received any treatment. PAST MEDICAL HISTORY: Remarkable for a diagnosis of non-Parkinson's progressive supranuclear palsy for which he sees double and has difficulty ambulating. Reportedly, he fell a few days ago because of unsteadiness. Otherwise, he denies any acute or chronic physical health issues. He sees Dr. Oneill and sometimes goes to [place] to see superspecialist for his neurological conditions. ALLERGIES: No known drug allergies. FAMILY PSYCHIATRIC HISTORY: Unremarkable. PERSONAL AND SOCIAL HISTORY: Mr. Maynard is currently disabled. He has little more than high school education. 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 He then joined his 's business, but now that has become an issue for him. GENERAL: Mr. Maynard is a healthy-appearing 63-year-old male, who is appropriately dressed and fairly groomed with fair personal hygiene. VITAL SIGNS: His vitals show a blood pressure of 135/82, pulse 95, respirations 16, temperature 98.5, and pulse ox 96% on room air. HEENT: His eyes show anicteric sclerae. Conjunctivae within normal limits. Ears: Clean eardrums and ear canals. Eardrums intact bilaterally. There is some difficulty hearing through his left ear he reports, but no formal exam was done. NECK: Little stiff, but movable. Midline trachea. No adenopathy or thyromegaly. LUNGS: Equal air entry bilaterally. No respiratory wheezes or crackles. CARDIOVASCULAR: S1 and S2 only. No gallops, murmurs, or rubs appreciated. Rate and rhythm are within normal limits. ABDOMEN: Soft, nontender. No evidence of enlarged organs. Bowel sounds positive in all quadrants. MUSCULOSKELETAL: Little stiff, maybe because of apprehension, but there are pulses positive in all extremities. NEUROLOGICAL: Alert, awake, and oriented to time, place, and person. Does not blink much. Otherwise, no sensory deficits. Cranial nerves II through XII grossly intact. LABORATORY DATA: Labs show a WBC count of 10.5, hemoglobin 15.5, hematocrit 47 , platelet count 200. Chem profile shows a sodium level of 139, potassium 4, chloride 107, carbon dioxide 23, BUN 15, creatinine 0.82. MENTAL STATUS EXAMINATION: The patient appears to be of his stated age 63, who is appropriately dressed, fairly groomed with fair personal hygiene. He has some gait difficulties, walks with a cane. Makes good eye contact, but does not have much of blinking. Looks like he is staring intensely, but that probably could be because of his neurological conditions. His speech is normal in all spheres. Intelligence appears to be average as evidenced by his vocabulary and fund of knowledge. Thought processes are logical and goal directed. Thought content has no evidence of delusions or obsessions. Currently denies any suicidal ideation, but was admitted because of attempting to asphyxiate. Denies any homicidal ideations. Memory functions appear to be intact in all spheres. Insight and judgment poor. SUMMARY: This 63-year-old disabled male with no prior history of psychiatric illnesses or treatments was admitted in the context of a failed suicide attempt by trying to asphyxiate self with carbon monoxide. DIAGNOSTIC IMPRESSION: Mental health diagnosis: Unspecified mood disorder, rule out adjustment disorder, rule out major depressive disorder. Physical health diagnosis: Non-Parkinson's progressive supranuclear palsy. TREATMENT RECOMMENDATIONS: For now, Mr. Maynard will be hospitalized on behavioral science unit for his safety and diagnostic clarification. His code status will remain full. Supportive milieu, individual, and group therapy will be initiated and he will be encouraged to attend those. I will continue all his outpatient medications at this time and defer the psychopharmacological treatment if needed to his assigned psychiatrist on the unit. 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 The patient was not a danger to self or others. The patient denied suicidal ideation , intent or plan. The patient denied homicidal targets, ideation, intent or plan. This patient participated in psychosocial rehabilitation and gained some insight into problems. The patient gained insight into mental illness, triggers, and treatment. The patient took medication as prescribed. The patient denied side effects of medication and objective signs of side effects were not evident. Therapy Resources were offered to the patient. Patient was given a supply of prescriptions at the time of discharge. The patient plans to attend follow up care with the follow up arrangements that were discussed and put in place. Patient was asked to keep appointments as scheduled, take medication as prescribed, have routine follow up care with their primary care physician and refrain from any use of alcohol or drugs. Objective - General Observations Appearance: Neat Appears Stated Age: Yes Stature: WNL Posture: Slumped Eye Contact: Average Behavior/Activity: WNL - Interaction Observations Attitude Towards Examiner: Cooperative Attitude Towards Parent/Guardian: Positive Interaction Stated Mood: Euthymic Affect: Blunted Speech Pattern/Tone: Clear Thought Process: Coherent Perception: WNL Thought Content: WNL Hallucination Type: None Delusion Type: None - Cognitive Function Orientation: A&O x 4 Level of Consciousness: Awake - Medication Compliance Cooperative with Inpatient Medication Regimen: Yes - Group Participation Participates in Group Activities: Yes Treatment Course & Assessment Clinical Course & Impression: Hospital course part A: 63 year old male with recent aborted suicide attempt by his who found him in the garage with the exhaust directed in the window of his truck Hospital course part B: Labs ordered included CBC, CMP, UDS, TSH, HBA1c, TSH, Toxicology screen, Urine analysis, and lipid profile. Labs were reviewed and did not require the need for further evaluation. Vital signs were monitored during the course of admission. The patient was admitted to the adult behavioral unit and placed on 15 minute check for safety. At a later time the patient was on Q30 minute observation and staff pass privileges. With those limits being extended , there were no occurrence of behavioral incidents. The patient did well on the unit and went to groups. Interacted with peers had adequate sleep and regular appetite. Tolerated medication changes without side effects. Group therapy and services were offered. The risks, benefits, and alternative treatment options were discussed as well as of the risks of refusing treatment. Treatment associated risks discussed. After this discussion made an acknowledgement of this understanding. Follow up care appointments were put in place for follow up care. The importance of monitoring for metabolic changes was discussed and acknowledgement of this understanding was made. Improvements in patient from the time of admission include: Improved affect, sleep and decrease in anxiety. No longer suicidal and no longer having feelings of hopelessness. The patient expressed readiness for discharge home. The patient presents with a broader range of affect, and the absence of depressed mood, delusions, perceptual disturbances. The patient denied suicidal and or homicidal ideation intent or plan. Overall, the patient responded well to inpatient treatment as evidenced by their report of strengthening of coping mechanisms, reduced distress, and more positive outlook on circumstances. Of note there was an improvement of recognizing how emotional state can effect mood and behavior. Safety precautions were put in place which included involving the patient and their family to closely monitor for changes in mental state. In addition, implementing follow up care, screening for the need to remove/securing firearms , weapons and stockpile of medications. Patient/ family instructed to immediately call 911 should any safety concerns arise. The patient was advised of the 24 hour / 7 days a week availability of the emergency room and to call 911 in the event of an emergency such as being suicidal and/ or homicidal. The patient was informed of the contact information for [facility], Su[facility] Prevention [facility] Crisis [facility], National Suicide Prevention Lifeline, [facility], Alcoholics Anonymous, and [facility]. Medications started included nicotine supplement offered and put in place, levothyroxine was increased to 150mcg. Patient was advised of changes to thyroid that the change of medication can have and advised to monitor levels with his primary care provider. Data showed favorable response with depression and progressive supranuclear palsy with Amitriptyline and ambien. Amitriptyline 25mg qhs and ambien 5mg qhs were started and showed positive clinical response. PT consult was placed for gait conditioning due to progressive supranuclear palsy. Wellbutrin 75mg was started for one day and discontinued. Zoloft and melatonin were discontinued. Klonopin was discontinued due to the risk of fall. Patient was provided with nicotine replacement and refused cessation resources. Family meeting took place before discharge. The family was in agreement with the discharge plan and was advised about warning signs associated with the progression of mental illness. They were informed of the lethality of medication in event of overdose. His family confirmed no access to firearms. His plans to lock up medications and manage medications and provide a few days at a time. The patient has a follow up appointment with neurology in [place] for progressive supranuclear palsy. Patient will be discharged to live at home with his . Follow up appointment at [facility] 02/03/19 10:45am and PCP Dr. Menard on 02/04/19 at 1:45pm. Patient informed of follow up appointment times. See more details for follow up care in the discharge plan. Risk factors:, Age, recent suicide attempt, Dx progressive supranuclear palsy. Protective factors: Currently no suicidal ideation, intent or plan , , has children. Has strong support system. No history of service. Currently no feelings of hopelessness, not in an occupation of social isolation , no family history of suicide, doesnt have access to firearms. Doesnt have command hallucinations and or psychotic features at this time. No history of substance abuse. No history of alcohol abuse. Not a anniversary of a loss of a loved one. No changes in relationship status, housing, job, or school. Currently future orientated. Patient engaged in treatment and compliant with medication. Merits Inpatient Hospitalization: No Clear for Discharge: Adequate Clinical Respons Discharge Planning - Discharge Planning Discharge Plan: Outpatient Follow Up Outpatient Program: [facility] Recommendations for Continuing Care: Medication Management Medications: Current Medications Acetaminophen (Tylenol Tab*) 650 mg PO Q4H PRN PRN Reason: PAIN or TEMP > 101 F Al Hydrox/Mg Hydrox/Simethicone (Maalox Plus*) 30 ml PO Q4H PRN PRN Reason: INDIGESTION Amitriptyline HCl (Elavil Tab*) 25 mg PO 1830 [facility] Last Admin: 01/30/19 18:27 Dose: 25 mg Atorvastatin Calcium (Lipitor*) 20 mg PO BEDTIME [facility] Last Admin: 01/30/19 20:54 Dose: 20 mg Cholecalciferol (Vitamin D Tab*) 1,000 units PO BEDTIME [facility] Last Admin: 01/30/19 20:54 Dose: 1,000 units Levothyroxine Sodium (Synthroid Tab*) 150 mcg PO DAILY@0600 [facility] Last Admin: 01/31/19 08:33 Dose: 150 mcg Multivitamins (Theragran Tab*) 1 tab PO DAILY [facility] Last Admin: 01/31/19 08:33 Dose: 1 tab Nicotine (Nicotine Patch 21 Mg/24 Hr*) 1 patch TRANSDERM DAILY PRN PRN Reason: CRAVINGS Last Admin: 01/30/19 08:55 Dose: 1 patch Nicotine Polacrilex (Nicotine Gum*) 2 mg PO Q2H PRN PRN Reason: CRAVINGS Last Admin: 01/26/19 20:03 Dose: 2 mg Pharmacy Profile Note (Nicotine Patch Removal Note*) 1 note PATCH OFF 2100 PRN PRN Reason: CRAVING Last Admin: 01/30/19 20:52 Dose: 1 note Zolpidem Tartrate (Ambien Tab*) 5 mg PO BEDTIME PRN PRN Reason: INSOMNIA Last Admin: 01/30/19 20:54 Dose: 5 mg Discharge Planning: Prescriptions provided for discharge [x] Yes [] No Follow up care details as per social work arrangements. Patient response to discharge plan: [] eager for discharge [x] agreeable with discharge plan [] ambivalent about discharge [] disagrees with discharge today
== END 2019-01-31 11:25 | disposition home or self-care (01) | DRG 885 ==
LOC: ED 00:55 → BSU 08:15
PROVIDERS: ADMIT Psychiatry & Neurology Psychiatry; ATTEND Psychiatry & Neurology Psychiatry
PROC: GZHZZZZ Group Psychotherapy (ICD-10-PCS; principal; 2019-01-26)
DX: F32.89 Other specified depressive episodes (principal); G23.1 Progressive supranuclear ophthalmoplegia [Steele-Richardson-Olszewski]; E03.9 Hypothyroidism, unspecified; F43.20 Adjustment disorder, unspecified; T14.91XA Suicide attempt, initial encounter; T58.02XA Toxic effect of carbon monoxide from motor vehicle exhaust, intentional self-harm, initial encounter; F17.210 Nicotine dependence, cigarettes, uncomplicated; E78.00 Pure hypercholesterolemia, unspecified; Z98.42 Cataract extraction status, left eye; Z98.41 Cataract extraction status, right eye; Z98.52 Vasectomy status; Z80.42 Family history of malignant neoplasm of prostate; Z73.6 Limitation of activities due to disability; Z91.81 History of falling; Z91.018 Allergy to other foods; Z80.8 Family history of malignant neoplasm of other organs or systems; Z72.89 Other problems related to lifestyle; Y92.008 Other place in unspecified non-institutional (private) residence as the place of occurrence of the external cause
CPT/HCPCS: 36415; 80053; 80061; 80320; 80329; 82375; 83036; 84443; 85025; 90853; 99222; 99233; 99238; 99285; A9270-GY; G0480; G8978-GP-CI; G8979-GP-CI

== ENCOUNTER 2019-09-07 16:45 | Emergency (ER) | payer MEDICARE ==
[~2019-09-07 16:45] MED LIST: EPINEPHrine SYR 0.1MG/ML* SYRINGE ONE
[2019-09-07] MEDS ORDERED: NS 0.9% 1000 ML** 1,000 ML IV ONE (16:54)
[2019-09-07 17:04] VITALS: BP 0/0
--- OUTSIDE RECORDS SUMMARY | 2019-09-07 17:09 | XMS REPORT ---
:1955 Author Organization [facility] Care Team Providers Name Role Phone Unavailable Unavailable Unavailable Problems This patient has no known problems. Allergies, Adverse Reactions, Alerts Allergy Allergy Status Severity Reaction(s) Onset Inactive Treating Comments Name Type Date Date Clinician Unknown None Active Unknown None Unknown No Known Allergies For This Patient Medications Ordered Filled Start Stop Current Ordering Indication Dosage Frequency Signature Comments Components Medication Medication Date Date Medication? Clinician (SIG) Name Name No Known No Known No None None None Medications Medications For This For This Patient Patient Procedures This patient has no known procedures. Results This patient has no known results.
--- OUTSIDE RECORDS SUMMARY | 2019-09-07 17:10 | XMS REPORT ---
:1955 Author Organization [facility] Care Team Providers Name Role Phone Unavailable [...]
--- OUTSIDE RECORDS SUMMARY | 2019-09-07 17:10 | XMS REPORT ---
:1955 Author Organization [facility] Care Team Providers Name Role Phone Unavailable [...]
--- OUTSIDE RECORDS SUMMARY | 2019-09-07 17:10 | XMS REPORT ---
:1955 Author Organization [facility] Care Team Providers Name Role Phone Unavailable [...]
--- OUTSIDE RECORDS SUMMARY | 2019-09-07 17:10 | XMS REPORT ---
:1955 Author Organization [facility] Care Team Providers Name Role Phone Unavailable [...]
--- OUTSIDE RECORDS SUMMARY | 2019-09-07 17:10 | XMS REPORT ---
:1955 Author Organization [facility] Care Team Providers Name Role Phone Unavailable [...]
--- OUTSIDE RECORDS SUMMARY | 2019-09-07 17:10 | XMS REPORT ---
:1955 Author Organization [facility] Care Team Providers Name Role Phone Unavailable [...]
--- OUTSIDE RECORDS SUMMARY | 2019-09-07 17:10 | XMS REPORT ---
:1955 Author Organization [facility] Care Team Providers Name Role Phone Unavailable [...]
--- OUTSIDE RECORDS SUMMARY | 2019-09-07 17:10 | XMS REPORT ---
:1955 Author Organization [facility] Care Team Providers Name Role Phone Unavailable [...]
--- OUTSIDE RECORDS SUMMARY | 2019-09-07 17:10 | XMS REPORT ---
:1955 Author Organization [facility] Care Team Providers Name Role Phone Unavailable [...]
--- OUTSIDE RECORDS SUMMARY | 2019-09-07 17:10 | XMS REPORT ---
:1955 Author Organization [facility] Care Team Providers Name Role Phone Unavailable [...]
--- OUTSIDE RECORDS SUMMARY | 2019-09-07 17:10 | XMS REPORT ---
:1955 Author Organization [facility] Care Team Providers Name Role Phone Unavailable [...]
--- OUTSIDE RECORDS SUMMARY | 2019-09-07 17:10 | XMS REPORT ---
:1955 Author Organization [facility] Care Team Providers Name Role Phone Unavailable [...]
--- OUTSIDE RECORDS SUMMARY | 2019-09-07 17:10 | XMS REPORT ---
:1955 Author Organization [facility] Care Team Providers Name Role Phone Unavailable [...]
--- OUTSIDE RECORDS SUMMARY | 2019-09-07 17:10 | XMS REPORT ---
:1955 Author Organization [facility] Care Team Providers Name Role Phone Unavailable [...]
--- OUTSIDE RECORDS SUMMARY | 2019-09-07 17:10 | XMS REPORT ---
:1955 Author Organization [facility] Care Team Providers Name Role Phone Unavailable [...]
--- OUTSIDE RECORDS SUMMARY | 2019-09-07 17:10 | XMS REPORT ---
:1955 Author Organization [facility] Care Team Providers Name Role Phone Unavailable [...]
--- OUTSIDE RECORDS SUMMARY | 2019-09-07 17:10 | XMS REPORT ---
:1955 Author Organization [facility] Care Team Providers Name Role Phone Unavailable [...]
--- NOTE | 2019-09-07 17:18 | ED ---
Cardiac Resuscitation - HPI Summary HPI Summary: Pt is a 64 y/o M presenting to the ED brought in by EMS for cardiac arrest. Per EMS, pt was taking the garbage out this morning when he experienced syncope and hit his head. EMS was called, and the pt reportedly held his breath with a discomforted look on his face for a brief moment and then arrested. EMS defibrillated him, he became responsive and talkative, and then while transporting pt to [facility], he arrested again. CPR in progress on pt arrival. - History of Current Complaint Chief Complaint: EDCardiacArrest Stated Complaint: HEART ATTACK PER EMS Time Seen by Provider: 09/07/19 16:47 Hx Obtained From: Patient, EMS Onset/Duration: Minutes/Hours: - approx 5 minutes [facility] Arrest Witnessed: Yes Down-time Before Advanced Life Support Initiated: Down-time before ALS initiated : - none. pt in ambulance at time of arrest Was AED Placed on Patient: Yes AED Placed on Patient By: EMS Did AED Recommend Defibrillation: Yes Was Defibrillating Shock Administered: Yes Did Patient Have Return of Spontaneous Circulation (ROSC): Yes - Additional Pertinent History Primary Care Physician: [id number] - Allergies/Home Medications Allergies/Adverse Reactions: Allergies Allergy/AdvReac Type Severity Reaction Status Date / Time abiliowheat Allergy Anaphylatic Verified 02/24/19 15:04 Shock - Past Medical History Past Medical History: Other: - parkinson's - Family History Family History: Other: - prostate CA, melanoma - Social History Social History: Lives with Family, Drug Use - none, ETOH Use - occasional, Tobacco Use - heavy every day - Review of Systems Review of Systems: Other: - syncope, head injury, cardiac arrest Physical Examination - Summary Physical Exam Summary: Constitutional: Pt pulseless, apnic, no spontaneous movement. Evidence of trauma noted. Skin: Pale, dry HENT: Normocephalic; Atraumatic. Frontal abrasion with mild edema Eyes: Pupils fixed and dilated Cardio: Pulseless. No cardiac wall motion noted on bedside ultrasound. Pulmonary/Chest wall: Bilateral breath sounds with BVM ventilation. Abd: Soft, non-distended Musculoskeletal: No gross extremity trauma Lymph: Deferred Neuro: Pt unresponsive, aphasic, no spontaneous movement. Psych: Deferred - Physical Examination Triage Information Reviewed: Yes Completion Of Physical Exam Limited Due To: Extremis Resuscitation: Unsuccessful Procedures - Sedation Patient Received Moderate/Deep Sedation with Procedure: No Diagnostics - Vital Signs Vital Signs Temp Pulse Resp BP Pulse Ox 09/07/19 17:00 111 23 09/07/19 16:45 0 F 0 0 0/0 0 - Laboratory Result Diagrams: 09/07/19 16:53 Lab Statement: Any lab studies that have been ordered have been reviewed, and results considered in the medical decision making process. - EKG 165 Cardiac Rate: Bradycardia EKG Rhythm: Sinus Bradycardia ST Segment: Other Ectopy: None Summary of EKG Findings: EKG at 1658 shows sinus bradycardia with a rate of 59bpm. ST elevation in anterolateral leads, c/w acute STEMI. Dr. Silva has reviewed and interpreted this EKG. Cardiac Resus. Course/Dx - Course Course Of Treatment: Pt is a 64 y/o M presenting to the ED brought in by EMS for cardiac arrest. Per EMS, pt was taking the garbage out this morning when he experienced syncope and hit his head. EMS was called, and the pt reportedly held his breath with a discomforted look on his face for a brief moment and then arrested. EMS defibrillated him, he became responsive and talkative, and then while transporting pt to [facility], he arrested again. Blood glucose per EMS was 100. CPR in progress on pt arrival by EMS. ABC ALERT CALLED 164. ACLS initiated. Pt received ongoing CPR and 2 rounds of epi, 1st at 1643 and 2nd at 1646, ROSC obtained, HR approximately 120, pt then quickly decompensated and became bradycardic and pulseless. ACLS resumed, 2 additional rounds of epi given , one at 1649 and 1653, pt remained pulseless. 5th and 6th rounds of epi given at 1656 and 1659. No cardiac wall motion noted. At this point, family confirmed pts DNR/DNI status, thus ACLS terminated. TOD 1704. On physical exam, pt is pulseless, apnic, without spontaneous movement, pale, frontal abrasion on forehead with mild edema noted, pupils are fixed and dilated, no cardiac wall motion is noted on bedside US, there are bilateral breath sounds with BVM ventilation, no gross extremity trauma, and pt is unresponsive and aphasic on neuro exam. EKG at 1658 shows sinus bradycardia with a rate of 59bpm. ST elevation in anterolateral leads, c/w acute STEMI. Dx includes STEMI and cardiac arrest. 1730 - Talked with medical stenographer, Dr. Alexia Ozuna. Cause of presumed natural, no indication for autopsy. - Diagnoses Provider Diagnoses: STEMI (ST elevation myocardial infarction), Cardiac arrest During the Visit The Following Alert/Code Occurred: STEMI, ABC Alert Discharge ED - Sign-Out/Discharge Documenting (check all that apply): Patient Departure - Discharge Plan Condition: Disposition: Referrals: Conor Menard MD [Primary Care Provider] - - Attestation Statements Document Initiated by Scribe: Yes Documenting Scribe: Светлана Ayala Provider For Whom Scribe is Documenting (Include Credential): Teodoro Silva DO. Scribe Attestation: IСветлана scribed for Teodoro Silva DO. on 09/07/19 at 1733. Status of Scribe Document: Ready Consult Consult: 1729 - Talked with medical stenographer, Dr. Alexia Ozuna. Cause of presumed natural, no indication for autopsy.
== END 2019-09-07 18:37 | disposition expired ==
LOC: ED 16:45
DX: I46.9 Cardiac arrest, cause unspecified (principal); I21.3 ST elevation (STEMI) myocardial infarction of unspecified site; G20 Parkinson's disease; F17.200 Nicotine dependence, unspecified, uncomplicated; E03.9 Hypothyroidism, unspecified; Z79.890 Hormone replacement therapy; Z79.899 Other long term (current) drug therapy
CPT/HCPCS: 93005; 99284; J0171